=== PATIENT | female | born 1990 | race Two or more races ===

== ENCOUNTER 2024-06-29 22:40 | Emergency (ER) | payer MEDICAID ==
[2024-06-29 23:12] LABS: APPEARANCE,URINE SLT CLOUDY; BILIRUBIN,URINE NEGATIVE (NEGATIVE); COLOR,URINE ORANGE; GLUCOSE,URINE NEGATIVE (NEGATIVE); KETONES,URINE TRACE mg/dL (NEGATIVE); LEUKOCYTE ESTERASE,URINE TRACE (NEGATIVE); NITRITE,URINE POSITIVE (NEGATIVE); OCCULT BLOOD,URINE NEGATIVE (NEGATIVE); PROTEIN,URINE 30 mg/dL (NEGATIVE); UROBILINOGEN,URINE 0.2 EU/dL (<2.0)
[2024-06-29 23:21] LABS: BACTERIA,URINE FEW (NEGATIVE); CALCIUM OXALATE CRYSTALS,URINE FEW (NEGATIVE); EPITHELIAL CELLS,URINE MODERATE (NONE-FEW)
[2024-06-29] MEDS: oxyCODONE 5 MG Tab PO ONE (23:50)
[2024-06-29] MEDS: Sulfamethoxazole/Trimethoprim 800-160 MG Tab PO ONE (23:50)
== END 2024-06-30 00:02 | disposition home or self-care (01) ==
LOC: MW.ED 22:40
DX: N39.0 Urinary tract infection, site not specified (principal); Z90.49 Acquired absence of other specified parts of digestive tract; Z88.0 Allergy status to penicillin; Z79.899 Other long term (current) drug therapy
CPT/HCPCS: 81001; 81025; 99283; A9270

== ENCOUNTER 2025-02-18 12:13 | Emergency (ER) | payer MEDICAID ==
[2025-02-18] MEDS: diphenhydrAMINE 50 MG/ML SDV IVPUSH ONE (13:28)
[2025-02-18] MEDS: Ketorolac 30 MG/ML SDV IVPUSH ONE (13:28)
[2025-02-18] MEDS: Lactated Ringers 1,000 ML IV ONE (13:29)
[2025-02-18] MEDS: droPERidol 2.5 MG/ML SDV IVPUSH ONE (14:09)
== END 2025-02-18 15:03 | disposition home or self-care (01) ==
LOC: MW.ED 12:13
DX: R51.9 Headache, unspecified (principal); Z88.0 Allergy status to penicillin; Z79.899 Other long term (current) drug therapy; Z90.49 Acquired absence of other specified parts of digestive tract
CPT/HCPCS: 96361; 96374; 96375; 99283; J1200; J1790; J1885; J2765; J7120